=== PATIENT | male | born 1955 | race Caucasian/White ===

== ENCOUNTER 2016-08-25 17:01 | Observation (INO) | payer OTHER ==
[~2016-08-25] VITALS: Ht 185.4 cm; Wt 79.4 kg
[2016-08-25 17:07] VITALS: BP 153/89
[2016-08-25 18:19] LABS: ABSOLUTE NEUTROPHILS 5.3 thou/uL (1.4-8.2); BASOPHILS 0.9 % (0.0-2.0); EOSINOPHILS 4.8 % (0.0-3.0); HEMATOCRIT 49.4 % (42.0-52.0); HEMOGLOBIN 17.1 gm/dL (14.0-18.0); LYMPHOCYTES 24.6 % (24.0-44.0); MCH 31.3 pg (26.0-34.0); MCHC 34.6 g/dL (28.0-37.0); MCV 90.5 fL (80.0-100.0); MONOCYTES 6.8 % (1.0-8.0); PLATELET COUNT 194 thou/uL (150-400); POLYS 62.9 % (36.0-66.0); RBC 5.45 mil/uL (4.50-6.00); RDW 14.7 % (10.5-14.5); WBC 8.5 thou/uL (4.0-11.0)
[2016-08-25 18:21] LABS: MANUAL DIFF NO
[2016-08-25 18:27] LABS: CALCIUM 9.8 mg/dL (8.5-10.1); CREATININE 0.9 mg/dL (0.7-1.3); POTASSIUM 4.1 mmol/L (3.5-5.1)
[2016-08-25 18:40] LABS: APTT 23.1 Seconds (24.5-32.8); PROTIME 10.3 Seconds (9.3-11.4)
[2016-08-25 18:44] VITALS: BP 119/57
[2016-08-25 19:00] VITALS: BP 147/97
[2016-08-26] VITALS: BP 125/75
[2016-08-26 03:30] VITALS: BP 137/88
[2016-08-26 07:05] VITALS: BP 151/91
[2016-08-26] MEDS ORDERED: XARELTO15 MG PO ×2 (11:13→11:15)
[2016-08-26 11:25] VITALS: BP 151/91
[2016-08-28 03:19] LABS: BETA-2 GLYCOPROTEIN IGG < 9 (0-20); BETA-2 GLYCOPROTEIN IGM < 9 (0-32)
== END 2016-08-26 14:50 | disposition home or self-care (01) ==
LOC: ER 17:01 → EROBS 18:20 → ER 18:45 → 3N 18:45
PROVIDERS: Emergency Medicine; Internal Medicine Hematology & Oncology
DX: I82.401 Acute embolism and thrombosis of unspecified deep veins of right lower extremity (principal); Z72.0 Tobacco use; Z72.89 Other problems related to lifestyle; M79.89 Other specified soft tissue disorders
CPT/HCPCS: 23019